=== PATIENT | female | born 1945 | race Caucasian/White ===

== ENCOUNTER → 2016-05-18 | Outpatient (CLI) | payer MEDICARE, OTHER | END | disposition home or self-care (01) | LOC: GMAB 14:43 | PROVIDERS: ATTEND Family Medicine | DX: R19.7 Diarrhea, unspecified (principal) ==

== ENCOUNTER → 2016-06-22 | Outpatient (CLI) | payer MEDICARE, OTHER | END | disposition home or self-care (01) | LOC: LAB.O 08:56 | PROVIDERS: ATTEND Orthopaedic Surgery | DX: Z01.818 Encounter for other preprocedural examination (principal); N39.0 Urinary tract infection, site not specified ==

== ENCOUNTER → 2016-07-11 | Outpatient (CLI) | payer MEDICARE, OTHER | END | disposition home or self-care (01) | LOC: GMAB 14:07 | PROVIDERS: ATTEND Family Medicine | DX: R53.82 Chronic fatigue, unspecified (principal) ==

== ENCOUNTER → 2016-07-25 | Outpatient (CLI) | payer MEDICARE, OTHER | END | disposition home or self-care (01) | LOC: GMAB 17:21 | PROVIDERS: ATTEND Family Medicine | DX: N39.0 Urinary tract infection, site not specified (principal) ==

== ENCOUNTER 2016-08-09 06:01 | Inpatient (IN) | payer MEDICARE, OTHER ==
--- NOTE | 2016-08-08 09:46 | HP ---
CHIEF COMPLAINT: Knee pain. HISTORY OF PRESENT ILLNESS: Lynsey is a 71-year-old female with a history of pain in the left knee. Her pain has begun limiting her activities. She has tried conservative measures, however, because of the failure of conservative measures, she has requested operative intervention. After discussing the risks , benefits and alternatives to operative intervention, the patient has given informed consent for total knee arthroplasty. PAST SURGICAL HISTORY: 1. Thyroidectomy. 2. Left knee arthroscopy. 3. Tubal ligation. MEDICATIONS: 1. Lisinopril. 2. Simvastatin. 3. Levothyroxine. 4. Metoprolol. 5. Fluoxetine. 6. Aspirin. ALLERGIES: NO KNOWN DRUG ALLERGIES. CODE STATUS: Full code. IMMUNIZATIONS: Up to date. SOCIAL HISTORY: The patient does not drink, smoke or use any illicit drugs. FAMILY HISTORY: None pertinent to today's complaint. REVIEW OF SYSTEMS: Negative except as indicated in the History of Present Illness. PHYSICAL EXAMINATION: VITAL SIGNS: Blood pressure 133/64. Pulse 79. Height 5'5". Weight 275. MENTAL STATUS: The patient is awake, alert, and is able to give a good history and participate in the physical. The patient is oriented to person, place and time. SKIN: Normal tone and turgor. HEENT: Normocephalic, atraumatic. Pupils equal, round and reactive. Mucosal membranes are moist. NECK: Normal range of motion. No thyromegaly, no lymphadenopathy. CHEST: Normal respiratory excursion. CARDIAC: Regular rate and rhythm. No murmurs, rubs or gallops. MUSCULOSKELETAL: The bilateral upper extremities show a right shoulder with difficulty in abduction and forward flexion. She has about 50 degrees on abduction. She is tender over the subacromial space. The contralateral side shows full range of motion without significant pain. There is no deformity in either upper extremity. The right knee shows good extension with flexion limitation at about 110 to 115 degrees. Extremities warm and well perfused. Sensation is intact. She has no varus/valgus or anterior/posterior laxity. IMAGING: X-rays show severe osteoarthritis with varus deformity. ASSESSMENT: 1. Osteoarthritis. PLAN: The plan at this point is for total knee arthroplasty. We have discussed the risks, benefits, and alternatives to that and the patient has given informed consent. #[id number] [facility]
[~2016-08-09 06:01] MED LIST: LACTATED RINGERS 1,000 ML ONE; SODIUM CHL 0.9% 100ML MINI-BAG 200 ML IVPB ONE; SODIUM CHLORIDE 0.9% 250ML 250 ML ONE; TRANEXAMIC ACID 1,000 MG/10 ML VIAL ONE; VANCOMYCIN HCL INJ 1,000 MG VIAL IVPB ONE; ceFAZolin SODIUM 1 GM VIAL ONE
[2016-08-09] MEDS ORDERED: BUPIVACAINE 0.25% INJ 30 ML VIAL INJ ONE (06:33)
[2016-08-09] MEDS ORDERED: ceFAZolin SODIUM 1 GM VIAL ONE ×4 (06:34→19:21)
[2016-08-09] MEDS ORDERED: MIDAZOLAM INJ 5 MG/5 ML VIAL ONE (06:43)
[2016-08-09] MEDS ORDERED: fentaNYL CITRATE INJ 50 MCG/ML AMP ONE (06:43)
[2016-08-09] MEDS ORDERED: CARBOXYMETHYLCELLULOSE 0.5% 0.4 ML UD ONE (06:43)
[2016-08-09] MEDS ORDERED: MORPHINE SULF *EPIDURAL* 1 MG/ML VIAL ONE (06:43)
[2016-08-09] MEDS ORDERED: ACETAMINOPHEN IV 1000MG 100 ML ONE (06:44)
[2016-08-09] MEDS ORDERED: VANCOMYCIN HCL INJ 1,000 MG VIAL IVPB ONE ×2 (08:44→15:33)
[2016-08-09] MEDS: VANCOMYCIN HCL INJ 1,000 MG VIAL IVPB ONE ×2 (08:50→09:30)
[2016-08-09] MEDS ORDERED: ELECTROLYTE-A 1,000 ML IVS ONE (08:58)
[2016-08-09] MEDS ORDERED: MORPHINE SULFATE INJ 10 MG/ML VIAL IM PRN (09:23)
[2016-08-09] MEDS ORDERED: SODIUM CHLORIDE 0.9% (FLUSH) 10 ML SYG IV PRN (09:23)
[2016-08-09] MEDS ORDERED: PROMETHAZINE HCL INJ 25 MG in SODIUM CHLORIDE 0.9% 50ML 50 ML IVPB PRN (09:23)
[2016-08-09] MEDS ORDERED: ALUMINUM & MAGNESIUM HYDROXIDE 30 ML UD PO PRN (09:23)
[2016-08-09] MEDS ORDERED: BISACODYL SUPPOSITORY 10 MG PR PRN (09:23)
[2016-08-09] MEDS ORDERED: ACETAMINOPHEN 500 MG TAB PO PRN (09:23)
[2016-08-09] MEDS ORDERED: ONDANSETRON INJ 4 MG/2 ML VIAL IV PRN (09:23)
[2016-08-09] MEDS ORDERED: MAGNESIUM HYDROXIDE 30 ML UD PO PRN (09:23)
[2016-08-09] MEDS ORDERED: TEMAZEPAM 15 MG CAP PO PRN (09:23)
[2016-08-09] MEDS ORDERED: PROMETHAZINE HCL INJ 12.5 MG in SODIUM CHLORIDE 0.9% 50ML 50 ML IVPB PRN (09:23)
[2016-08-09] MEDS ORDERED: BENZOCAINE-MENTH LOZ (CEPACOL) 1 EA LOZ MT PRN (09:23)
[2016-08-09] MEDS ORDERED: TRANEXAMIC ACID INJ 1,000 MG in SODIUM CHLORIDE 0.9% 100ML 100 ML IVPB ONE (09:23)
[2016-08-09] MEDS ORDERED: ACETAMINOPHEN 325 MG TAB PO PRN (09:23)
[2016-08-09] MEDS ORDERED: ZOLPIDEM TARTRATE 5 MG TAB PO PRN (09:23)
[2016-08-09] MEDS ORDERED: MORPHINE SULFATE INJ 10 MG/ML VIAL IV PRN (09:23)
[2016-08-09] MEDS ORDERED: NALOXONE HCL INJ 0.4 MG/ML VIAL IV PRN (09:23)
[2016-08-09] MEDS ORDERED: MORPHINE PCA 1 MG/ML 100ML 1 BAG in PREMIX BAG 1 BAG IVPB SCH (09:30)
[2016-08-09] MEDS ORDERED: MORPHINE PCA 1 MG/ML 100 ML BAG IVPB ONE (09:42)
[2016-08-09] MEDS ORDERED: SODIUM CHLORIDE 0.45% 1000ML 1,000 ML IVS PRN (11:45)
[2016-08-09] MEDS ORDERED: LIDOCAINE 1% 10 ML VIAL INJ ONE (12:00)
[2016-08-09] MEDS ORDERED: ePHEDrine SULF 50 MG/ML IV ONE (12:00)
[2016-08-09] MEDS ORDERED: raNITIdine HCL INJ 25 MG/ML VIAL IV ONE (12:00)
[2016-08-09] MEDS ORDERED: ONDANSETRON ODT 8 MG TAB PO ONE (12:00)
[2016-08-09] MEDS ORDERED: DEXAMETHASONE INJ 10 MG/ML VIAL IV ONE (12:00)
[2016-08-09] MEDS ORDERED: PROPOFOL 200 MG/20 ML VIAL IV ONE (12:00)
[2016-08-09] MEDS: IV SET AND CAP CHANGE INJ INJ SCH (13:18)
[2016-08-09] MEDS: DEX 5% W/NACL 0.45% 1000ML 1,000 ML IVS PRN (13:33)
--- NOTE | 2016-08-09 14:43 | RAD ---
EXAM DESCRIPTION: Knee,Left 2 or More Views CLINICAL HISTORY: 71 years,Female,TKA COMPARISON: None FINDINGS: The left knee demonstrates total knee arthroplasty which appears be recent without evidence of fractures. The joint spaces are unremarkable. The soft tissues overlying soft tissue swelling and significant emphysema from recent surgery. No joint effusion. IMPRESSION: Recent left total knee arthroplasty appears unremarkable. Electronically signed by: Red Ozuna MD 08/09/2016 2:43 PM CDT
[2016-08-09] MEDS ORDERED: SODIUM CHLORIDE 0.9% 100ML 100 ML IVPB ONE ×2 (15:32→19:21)
[2016-08-09] MEDS ORDERED: SODIUM CHLORIDE 0.9% 250ML 250 ML ONE (15:33)
[2016-08-09] MEDS: ceFAZolin SODIUM 2 GM in SODIUM CHLORIDE 0.9% 100ML 100 ML IVPB SCH (15:55)
[2016-08-09] MEDS ORDERED: ceFAZolin SODIUM 1 GM in SODIUM CHL 0.9% 50ML MIN-BAG+ 50 ML IVPB SCH (16:00)
[2016-08-09] MEDS: VANCOMYCIN HCL INJ 1,000 MG in SODIUM CHLORIDE 0.9% 250ML 250 ML IVPB SCH (17:21)
--- NOTE | 2016-08-09 19:02 | PCM.CORE ---
Physician DVT/VTE - Prophylaxis Currently: Patient already on anticoagulation therapy - Nurse DVT Assessment & Total Each Risk Factor Represents 5 Points: Elective Arthtroplasty Each Risk Factor Represents 2 Points: Age 60-74 Each Risk Factor is 1 Point: Obesity (BMI >25) DVT Assessment Score: 8 - 5 or more Very High Risk Treatments: Early Ambulation *, Sequential Compression Device Pharmacological: Enoxaparin 30mg SQ BID
[2016-08-09] MEDS ORDERED: DOCUSATE CALCIUM 240 MG CAP ONE (19:20)
[2016-08-09] MEDS ORDERED: ENOXAPARIN SODIUM 30 MG/0.3 ML SYG SUBCU ONE (19:21)
[2016-08-09] MEDS ORDERED: SIMVASTATIN 20 MG TAB ONE (19:21)
--- NOTE | 2016-08-09 20:05 | CONS ---
DATE OF CONSULTATION: 08/09/16 SUPERVISING PHYSICIAN: Fan Rodriguez M.D. REFERRING PHYSICIAN: Orthopedic services HISTORY OF PRESENT ILLNESS: Ms. Lord is a 71 year-old female patient that has a significant history of bilateral knee pain having recently had her right knee replaced on 10/28/15. She has been having pain that has been limiting her activities significantly and she has failed multiple conservative measures, and has requested Dr. Coleman perform operative intervention to assist with her symptom control. The patient was seen in the immediate postoperative state after a total left knee arthroplasty. She is in stable condition. PAST MEDICAL HISTORY: 1. Hyperlipidemia. 2. Hypertension. 3. Hypothyroidism. PAST SURGICAL HISTORY: 1. Right total knee arthroplasty 10/28/15. 2. Thyroidectomy. 3. Tubal ligation. 4. Previous left knee arthroscopic procedure. HOME MEDICATIONS: 1. Simvastatin 40 mg at bedtime. 2. Phenergan 12.5 mg at bedtime. 3. Metoprolol succinate ER 25 mg daily. 4. Hydrochlorothiazide 12.5 mg 1 tablet daily. 5. Lisinopril 10 mg at bedtime. 6. Prozac 40 mg daily. 7. Aspirin 325 mg daily. 8. ProAir handheld inhaler 2 puffs inhaled every 6 hours p.r.n. 9. Meloxicam 10 mg daily. ALLERGIES: NO KNOWN DRUG ALLERGIES. FAMILY HISTORY: Father is from colon cancer and complications of diabetes mellitus. Mother has type 2 diabetes mellitus. SOCIAL HISTORY: The patient lives in [place]. She is but denies any history of smoking ever and no illicit drug use, but she drinks on a rare occasion. PHYSICAL EXAMINATION: VITAL SIGNS: Temperature 98.1, pulse 59, blood pressure 131/74, respirations 18 , satting 95% on nasal cannula at rest. Weight is 124.7 kg. GENERAL: The patient is seen in the immediate postoperative state. She is resting in bed on admission to the Medical/Surgical floor. She appears to be comfortable and in no acute distress. She did have Astramorph and has a ALTERATION SPECIALIST pain regimen in place. Her left knee is in a bandage and with Iceman in place. HEENT: Tympanic membranes are clear bilaterally. Oropharynx is pink and moist without any lesions. NECK: Supple with full range of motion, non-tender. No jugular venous distention is noted. CHEST: Clear to auscultation bilaterally without any rhonchi, wheezing or rales. HEART: Regular rate and rhythm without appreciable murmurs, gallops, or rubs. ABDOMEN: Obese but soft, non-tender with positive bowel sounds. EXTREMITIES: No clubbing, cyanosis or edema noted. Surgical bandage and Iceman are in place over the left knee with distal pulses being strong and capillary refill being brisk. NEUROLOGIC: She is alert and oriented times three. Cranial nerves II-XII are grossly intact. There is no notable localizing or lateralizing neurological deficits. LABORATORY: No current laboratory for review. RADIOLOGY: No radiology for review. ASSESSMENT: 1. Postoperative day zero for left total knee arthroplasty having failed to respond to conservative treatment for ongoing chronic pain requiring surgical intervention for symptom control. 2. History of hypertension. 3. History of hypothyroidism on supplementation. 4. Morbid obesity. PLAN: Will continue to follow the patient closely as long as she progresses through her recovery phase and physical therapy efforts. Will monitor blood pressure and treat accordingly. Will anticipate discharge at the discretion of the patient's clinical progression and Physical Therapy. Previously she required Swing Bed admission. Will continue to monitor and should she show good clinical progression, anticipate she could go home at least in 3 to 4 days , possibly needing Swing Bed. Until then, will continue to monitor closely and treat appropriately. #[id number] [facility]
[2016-08-09] MEDS: DOCUSATE CALCIUM 240 MG CAP PO SCH (20:56)
[2016-08-09] MEDS: LISINOPRIL 10 MG TAB PO SCH (20:57)
[2016-08-09] MEDS ORDERED: NON-FORMULARY MEDICATION 1 EA MIS (Simvastatin [Simvastatin] 40 MG) PO SCH (21:00)
[2016-08-09] MEDS: ENOXAPARIN SODIUM 30 MG/0.3 ML SYG SUBCU SCH (22:30)
[2016-08-10] MEDS: ceFAZolin SODIUM 2 GM in SODIUM CHLORIDE 0.9% 100ML 100 ML IVPB SCH ×3 (00:27→08:36)
[2016-08-10] MEDS ORDERED: VANCOMYCIN HCL INJ 1,000 MG VIAL IVPB ONE (04:55)
[2016-08-10] MEDS ORDERED: SODIUM CHLORIDE 0.9% 250ML 250 ML ONE (04:55)
[2016-08-10] MEDS ORDERED: FLUoxetine HCL 20 MG CAP ONE (04:58)
[2016-08-10] MEDS: VANCOMYCIN HCL INJ 1,000 MG in SODIUM CHLORIDE 0.9% 250ML 250 ML IVPB SCH ×2 (05:17→05:22)
[2016-08-10] MEDS: METOPROLOL SUCCINATE XL 25 MG TAB PO SCH (06:30)
[2016-08-10] MEDS ORDERED: FLUOXETINE HCL 40 MG PO SCH (07:00)
[2016-08-10] MEDS ORDERED: SODIUM CHLORIDE 0.9% 100ML 100 ML IVPB ONE (07:33)
[2016-08-10] MEDS ORDERED: ceFAZolin SODIUM 1 GM VIAL ONE (07:34)
[2016-08-10] MEDS: ASPIRIN TABLET 325 MG TAB PO SCH (08:38)
[2016-08-10] MEDS: MAGNESIUM OXIDE 400 MG TAB PO SCH (08:38)
[2016-08-10] MEDS: MELOXICAM 10 MG PO SCH (08:39)
[2016-08-10] MEDS: ENOXAPARIN SODIUM 30 MG/0.3 ML SYG SUBCU SCH ×2 (09:43→21:20)
--- NOTE | 2016-08-10 10:05 | PN ---
DATE: 08/09/16 POSTOPERATIVE CHECK SUBJECTIVE: Ms. Lord is doing very well. She is on her CPM and near 120 degrees. OBJECTIVE: Afebrile. Vital signs stable. Dressing is clean, dry and intact. ASSESSMENT: Status post total knee arthroplasty. PLAN: The plan at this point is for her to begin weight-bearing as tolerated on postoperative day 1. #[id number] [facility]
--- NOTE | 2016-08-10 10:06 | PN ---
DATE: 08/10/16 SUBJECTIVE: Ms. Lord is doing well and pain is well controlled and therefore. OBJECTIVE: Afebrile. Vital signs stable. Dressing is clean, dry and intact. ASSESSMENT: Status post total knee arthroplasty. PLAN: The plan at this point is for her to continue with CPM and advance as tolerated. She will begin weight-bearing today with physical therapy. [facility][id number] [facility]
--- NOTE | 2016-08-10 10:19 | OP ---
DATE OF PROCEDURE: 08/09/16 PREOPERATIVE DIAGNOSIS: 1. Osteoarthritis of the knee. POSTOPERATIVE DIAGNOSIS: 1. Osteoarthritis of the knee. PROCEDURE: 1. Total knee arthroplasty. SURGEON: Luke Coleman MD. RN ALLERGY: Segun Jim CST, SA-C. ANESTHESIA: General. COMPLICATIONS: None. FINDINGS: Severe arthritis of the knee. INDICATION: Ms. Lord has a long history of knee pain that has been associated with arthritis. She has had total knee arthroplasty on the contralateral side and requested operative intervention on the left side secondary to failure of conservative measures. After discussing the risks, benefits and alternatives to that, the patient has given informed consent for total knee arthroplasty. PROCEDURE: The patient was brought to the Operating Room and placed in supine position. General anesthesia was induced and the patient's leg was sterilely prepped and draped. Following prepping and draping, the distal femur was exposed and using an intramedullary guide, the distal femoral cut was made. The appropriate sized cutting block was measured, pinned into place, and the anterior, posterior, and chamfer cuts were made. The ACL was transected and the tibia was subluxed. Both the medial and lateral menisci were removed. An intramedullary guide was used to make the proximal tibial cut. The appropriate sized base plate was placed and a trial polyethylene was placed. The trial femur was placed, the knee was reduced, and the knee was taken through a range of motion. The knee was stable in anterior, posterior, varus and valgus stress. The patella tracked anatomically without evidence of subluxation or dislocation. After trialing, the trial components were removed and the bony surfaces were thoroughly irrigated with saline. Following irrigation, the surfaces were dried and the final components were cemented into place. The excess cement was removed and the remaining cement was allowed to cure. The knee was again taken through a range of motion to confirm stability. The wound was then irrigated with saline and closure was performed using PDS to approximate the arthrotomy followed by closure of the subcutaneous tissues with a combination of running and interrupted Monocryl sutures. Sterile dressing was placed. The patient was awoken from anesthesia and taken to Recovery. POSTOPERATIVE INSTRUCTIONS: The patient will be weight-bearing as tolerated on postoperative day 1. COMPONENTS: SHERPANDIPITY Triathlon Knee; size 5 femur, size 5 tibia, 11mm insert #[id number] MTD
[2016-08-10] MEDS: HYDROcodone 5MG/APAP 325MG 1 EA TAB PO PRN (15:36)
--- NOTE | 2016-08-10 20:16 | PN ---
DATE: 08/10/16 SUPERVISING PHYSICIAN: Fan Rodriguez M.D. SUBJECTIVE: The patient is lying in her hospital bed. She has been walking in the halls and has no complaints at this time. In fact, she feels really well today, although she is tired from the physical therapy. OBJECTIVE: VITAL SIGNS: Temperature 99, pulse rate 62, blood pressure 130/71, respiratory rate 20, O2 sat 92% on room air. RESPIRATORY: Clear to auscultation bilaterally. CARDIAC: Regular rate and rhythm. ABDOMEN: Soft, nondistended, non-tender. Bowel sounds are positive. EXTREMITIES: She has an Iceman to her left knee. +1 pedal edema bilaterally with bilateral palpable pedal pulses at +2. No cyanosis or clubbing. The bandage to her left knee is dry and intact. NEUROLOGIC: She is awake, alert and oriented times three. LABORATORY AND RADIOLOGY: There are no current labs and films to be reviewed. ASSESSMENT: 1. Postoperative day 1 for left total knee arthroplasty having failed to respond to conservative treatment for ongoing chronic pain requiring surgical intervention by Dr. Luke Coleman, orthopedic surgeon. 2. History of hypertension. 3. History of hypothyroidism. 4. Morbid obesity. PLAN: We will continue present supportive care. I have encouraged good pulmonary toilet, including her incentive spirometry. Orthopedic issues will be per Dr. Coleman and her strengthening and conditioning per Physical Therapy. Hopefully she can go home by Monday or Monday with outpatient physical therapy. Until then, we will continue to monitor closely and followup as needed. Dr. Rodriguez is the collaborating physician available for consultation. #[id number] [facility]
[2016-08-10] MEDS: SIMVASTATIN 20 MG TAB PO SCH (21:20)
[2016-08-10] MEDS: DOCUSATE CALCIUM 240 MG CAP PO SCH (21:20)
[2016-08-10] MEDS: LISINOPRIL 10 MG TAB PO SCH (21:20)
[2016-08-10] MEDS: DEX 5% W/NACL 0.45% 1000ML 1,000 ML IVS PRN (21:22)
[2016-08-11] MEDS: HYDROcodone 5MG/APAP 325MG 1 EA TAB PO PRN ×3 (03:13→16:52)
[2016-08-11] MEDS: FLUoxetine HCL 20 MG CAP PO SCH (06:12)
[2016-08-11] MEDS: METOPROLOL SUCCINATE XL 25 MG TAB PO SCH (06:15)
--- NOTE | 2016-08-11 09:04 | PN ---
DATE: 08/11/16 SUBJECTIVE: Ms. Pak is doing very well and her pain is well controlled. OBJECTIVE: Afebrile. Vital signs stable. Wound is clean. There are no signs or symptoms of infection. ASSESSMENT: Status post total knee arthroplasty. PLAN: The plan is to continue with weight-bearing as tolerated. We will discharge her when she has met all goals. [facility][id number] [facility]
[2016-08-11] MEDS: MAGNESIUM OXIDE 400 MG TAB PO SCH (09:40)
[2016-08-11] MEDS: ASPIRIN TABLET 325 MG TAB PO SCH (09:40)
[2016-08-11] MEDS: ENOXAPARIN SODIUM 30 MG/0.3 ML SYG SUBCU SCH ×2 (09:40→22:36)
[2016-08-11] MEDS: SODIUM CHLORIDE 0.9% (FLUSH) 10 ML SYG IV SCH ×2 (09:40→21:13)
[2016-08-11] MEDS: MELOXICAM 10 MG PO SCH (09:59)
--- NOTE | 2016-08-11 13:41 | PN ---
SUPERVISING PHYSICIAN: Erum Rodriguez MD DATE: 08/11/16 SUBJECTIVE: The patient is sleeping in her hospital bed. She awakens easily. She has no complaints except that she did not sleep quite as well as she would have liked last night, but otherwise she feels like she is progressing very well. OBJECTIVE: VITAL SIGNS: Afebrile. Heart rate 65. Blood pressure 137/61. Respiratory rate 18. O2 saturation 93% on 2 liters nasal cannula. LUNGS: Clear to auscultation bilaterally. CARDIAC: Regular rate and rhythm. ABDOMEN: Soft, nontender, nondistended. Bowel sounds are positive. EXTREMITIES: She has an Iceman to her left knee. Dressing to her knee is dry and intact. There is no cyanosis, clubbing or edema to the lower extremities. NEUROLOGIC: Awake, alert and oriented times three. LABORATORY: There are no current laboratory or radiology films to be reviewed. ASSESSMENT: 1. Postoperative day 2 for left total knee arthroplasty, having failed to respond to conservative treatment for ongoing chronic pain requiring surgical intervention by Dr. Luke Coleman, orthopedic surgeon. 2. History of hypertension. 3. History of hypothyroidism. 4. Morbid obesity. PLAN: We will continue supportive care. We will defer issues of orthopedic nature to Dr. Coleman. She will continue her strengthening and condition per physical therapy. When she has met her goals, we can discharge her home. We anticipate discharge on Monday with outpatient physical therapy. Until then, we will continue present supportive care and follow as needed. [facility][id number] [facility]
[2016-08-11] MEDS: CYCLOBENZAPRINE HCL 10 MG TAB PO PRN (18:16)
[2016-08-11] MEDS: LISINOPRIL 10 MG TAB PO SCH (21:13)
[2016-08-11] MEDS: SIMVASTATIN 20 MG TAB PO SCH (21:13)
[2016-08-11] MEDS: DOCUSATE CALCIUM 240 MG CAP PO SCH (21:13)
[2016-08-12] MEDS: HYDROcodone 5MG/APAP 325MG 1 EA TAB PO PRN ×3 (00:17→14:05)
[2016-08-12] MEDS: FLUoxetine HCL 20 MG CAP PO SCH (05:58)
[2016-08-12] MEDS: METOPROLOL SUCCINATE XL 25 MG TAB PO SCH (05:58)
[2016-08-12] MEDS: ASPIRIN TABLET 325 MG TAB PO SCH (09:31)
[2016-08-12] MEDS: SODIUM CHLORIDE 0.9% (FLUSH) 10 ML SYG IV SCH ×2 (09:32→21:29)
[2016-08-12] MEDS: MELOXICAM 10 MG PO SCH (09:32)
[2016-08-12] MEDS: MAGNESIUM OXIDE 400 MG TAB PO SCH (09:32)
[2016-08-12] MEDS: IV SET AND CAP CHANGE INJ INJ SCH (09:33)
[2016-08-12] MEDS: ENOXAPARIN SODIUM 30 MG/0.3 ML SYG SUBCU SCH ×2 (10:44→21:26)
[2016-08-12] MEDS: CYCLOBENZAPRINE HCL 10 MG TAB PO PRN (10:51)
--- NOTE | 2016-08-12 11:25 | PN ---
DATE: 08/12/16 SUBJECTIVE: Lynsey is doing really well. She is ambulating with her walker. OBJECTIVE: Wound is clean. There are no signs or symptoms of infection. ASSESSMENT: Status post total knee arthroplasty. PLAN: She is doing well enough that I think she would be a candidate for discharge tomorrow. She will be prescribed outpatient physical therapy. [facility][id number] [facility]
[2016-08-12] MEDS ORDERED: MAGNESIUM HYDROXIDE 30 ML UD PO ONE ×2 (11:40→21:00)
--- NOTE | 2016-08-12 12:00 | PN ---
SUPERVISING PHYSICIAN: Erum Rodriguez MD DATE: 08/12/16 SUBJECTIVE: The patient is lying in her hospital bed. She has just walked in the hallways. She has no complaints of shortness of breath, chest pain, nausea , vomiting, or any unexpected pain in her knee. Her only complaint is that she has not had a bowel movement since surgery and we discussed that she has some issues after taking opioids, so will give her some Milk of Magnesia and she agreed to that. OBJECTIVE: VITAL SIGNS: Afebrile. Heart rate 65. Blood pressure 145/70. Respiratory rate 20. O2 saturation 93% on room air. LUNGS: Clear to auscultation bilaterally. CARDIAC: Regular rate and rhythm. ABDOMEN: Soft, nontender, nondistended. Bowel sounds are positive. EXTREMITIES: She has a dressing to her left knee that is dry and intact. Bilateral pedal pulses are palpable at +2. No cyanosis, clubbing or edema to her lower extremities. NEUROLOGIC: Awake, alert and oriented times three. LABORATORY: There are no labs and films to review at this time. ASSESSMENT: 1. Postoperative day 3 for left total knee arthroplasty, having failed to respond to conservative treatment for ongoing chronic pain requiring surgical intervention by Dr. Luke Coleman, orthopedic surgeon. 2. History of hypertension. 3. History of hypothyroidism. 4. Morbid obesity. PLAN: We will continue present supportive care. Dr. Coleman and the patient have discussed that she will be discharged tomorrow. She will have outpatient physical therapy. At this time, she will continue with strengthening and condition with our physical therapy. I have ordered her some Milk of Magnesia and we will monitor the results of that. We will plan for discharge tomorrow as long as everything progresses as expected. Otherwise, we will continue to monitor the patient closely and followup as needed. #[id number] [facility]
[2016-08-12] MEDS ORDERED: BISACODYL SUPPOSITORY 10 MG PR ONE (21:00)
[2016-08-12] MEDS: DOCUSATE CALCIUM 240 MG CAP PO SCH (21:26)
[2016-08-12] MEDS: LISINOPRIL 10 MG TAB PO SCH (21:26)
[2016-08-12] MEDS: SIMVASTATIN 20 MG TAB PO SCH (21:28)
[2016-08-13] MEDS: HYDROcodone 5MG/APAP 325MG 1 EA TAB PO PRN (00:26)
[2016-08-13] MEDS: FLUoxetine HCL 20 MG CAP PO SCH (09:03)
[2016-08-13] MEDS: METOPROLOL SUCCINATE XL 25 MG TAB PO SCH (09:04)
[2016-08-13] MEDS: ASPIRIN TABLET 325 MG TAB PO SCH (09:04)
[2016-08-13] MEDS: SODIUM CHLORIDE 0.9% (FLUSH) 10 ML SYG IV SCH (09:05)
[2016-08-13] MEDS: MAGNESIUM OXIDE 400 MG TAB PO SCH (09:08)
[2016-08-13] MEDS: MELOXICAM 10 MG PO SCH (09:25)
[2016-08-13] MEDS: ENOXAPARIN SODIUM 30 MG/0.3 ML SYG SUBCU SCH (10:22)
[2016-08-13] MEDS: CYCLOBENZAPRINE HCL 10 MG TAB PO PRN (10:23)
[2016-08-13 11:39] VITALS: BP 136/74; TEMP 98.5; O2SAT 96
--- NOTE | 2016-08-13 11:54 | DS ---
DISCHARGE DIAGNOSIS: 1. Postoperative day number 4 left total knee arthroplasty performed by Dr. Coleman, orthopedic surgery, after having failed outpatient conservative therapy and requiring surgical intervention for symptomatic relief. 2. History of hypertension. 3. History of hypothyroidism on supplementation. 4. Obesity. HISTORY OF PRESENT ILLNESS: This 71 year-old white female was admitted to the hospital for elective surgery to be performed by Dr. Coleman, orthopedist, because of worsening pain in her left knee. She had previously and more recently had a total right knee replacement surgery performed on 10/28/15. It was helpful in allowing her to at this time undergo the additional surgery of having her left total knee replaced to assist with worsening symptomatology unresponsive to outpatient therapy. She tolerated the procedure quite well and was placed on physical therapy rehabilitation, and was slowly progressed in her abilities to function until she was able to safely be able to return home. LABORATORY STUDIES: Hemoglobin on the morning after surgery was 11.2. Other preoperative laboratory results are in the chart. Please refer to them for reference. X-RAYS: Postoperative x-ray of the left knee showed good placement of the left total knee arthroplastic device. HOSPITAL COURSE: The patient's condition slowly improved requiring less and less analgesics, and was soon able to get out of the bed and go to the bathroom , and to the chair without significant assistance. She will have her at home to assist with her ongoing care as well. She reached the point where it was safe for her to continue with her therapy at home and was discharged home to continue with outpatient therapy. PLAN: The patient was discharged home to have followup with Dr. Rodríguez in [address] Coleman at the appointment set up on 08/26/16 at 8:45 AM. Home medicines will be continued to which are added a prescription by Dr. Coleman for [place] 5/325 every 6 hours p.r.n. pain #50 as well as Xarelto 10 mg a day beginning tomorrow morning #8 tablets given. The patient is encouraged to breathe deeply and to actively contract and relax muscles of the lower extremities to assist with DVT prophylaxis. She is to actively participate in physical [facility] begin on Monday at scheduled time to be given to her by Physical Therapy. She is to return if not improving. #[id number] [facility]
== END 2016-08-13 13:40 | disposition home or self-care (01) | DRG 470 ==
LOC: AMB 06:01 → MS 10:26
PROVIDERS: ADMIT Orthopaedic Surgery; ATTEND Emergency Medicine
PROC: 0SRD0J9 Replacement of Left Knee Joint with Synthetic Substitute, Cemented, Open Approach (ICD-10-PCS; principal; 2016-08-09 07:00)
DX: M17.12 Unilateral primary osteoarthritis, left knee (principal); Z68.42 Body mass index [BMI] 45.0-49.9, adult; I10 Essential (primary) hypertension; E03.9 Hypothyroidism, unspecified; E78.5 Hyperlipidemia, unspecified; E66.01 Morbid (severe) obesity due to excess calories; F32.9 Major depressive disorder, single episode, unspecified; Z96.651 Presence of right artificial knee joint; Z79.82 Long term (current) use of aspirin; Z79.899 Other long term (current) drug therapy

== ENCOUNTER → 2016-12-22 | Outpatient (CLI) | payer MEDICARE, OTHER | END | disposition home or self-care (01) | LOC: GMAB 10:05 | PROVIDERS: ATTEND Family Medicine | DX: E03.9 Hypothyroidism, unspecified (principal) ==

== ENCOUNTER → 2017-02-02 | Outpatient (CLI) | payer MEDICARE, OTHER | LOC: GMAB 16:46 | PROVIDERS: ATTEND Family Medicine | DX: E53.8 Deficiency of other specified B group vitamins (principal); D50.9 Iron deficiency anemia, unspecified; D64.9 Anemia, unspecified ==

== ENCOUNTER → 2017-08-01 | Outpatient (CLI) | payer MEDICARE, OTHER ==
--- NOTE | 2017-08-03 11:32 | MAM ---
EXAM DESCRIPTION: 3D Screening BILATERAL : Digital Mammography. CLINICAL HISTORY: 72 years Female SCREENING . No complaints. No family history breast cancer. Postmenopausal. Taking HRT more than 5 years ago. COMPARISON: 2-D digital screening bilateral study 09/03/2015.. No prior reports available. TECHNIQUE: Bilateral CC and MLO projection full-field images, 3-D tomosynthesis digital mammographic technique. Also bilateral synthesized CC/ MLO full-field images. CAD not utilized. FINDINGS: The breast parenchymal density pattern is: Almost entirely fatty. No skin thickening or nipple retraction bilateral axillary lymph nodes. Bilateral solitary microcalcifications. No focal, stellate mass or density, focal asymmetry , and no suspicious microcalcifications bilaterally. Stable mammograms compared to prior study, taking into account differences in mammographic technique IMPRESSION: BI-RADS CATEGORY: 2 - BENIGN FINDINGS. FOLLOW UP: Routine digital bilateral screening, one year interval from August 2017. Written communication explaining the IMPRESSION and follow-up, will be mailed to the patient and referring health care provider. According to the [employer], yearly mammograms are recommended starting at age 40 and continuing as long as a woman is in good health. Any breast change noted on a breast self-exam should be reported promptly to the patient's healthcare provider. Breast MRI is recommended for women with an approximately 20-25% or greater lifetime risk of breast cancer, including women with a strong family history of breast or ovarian cancer and women who have been treated for Hodgkin's disease. A negative mammographic report should not delay tissue diagnosis in patients with significant clinical history or physical findings. Extremely dense breast tissue limits the sensitivity of digital mammography. Electronically signed by: Segun Caceres MD 08/03/2017 11:30 AM CDT
== END ==
LOC: MAMMO 16:40
PROVIDERS: ATTEND Family Medicine
DX: Z12.31 Encounter for screening mammogram for malignant neoplasm of breast (principal)

== ENCOUNTER → 2017-11-29 | Outpatient (CLI) | payer MEDICARE, OTHER | LOC: GMAE 10:34 | PROVIDERS: ATTEND Family Medicine | DX: E53.8 Deficiency of other specified B group vitamins (principal); E55.9 Vitamin D deficiency, unspecified ==

== ENCOUNTER → 2018-01-24 | Outpatient (CLI) | payer MEDICARE, OTHER | LOC: GMAE 10:54 | PROVIDERS: ATTEND Family Medicine | DX: E03.9 Hypothyroidism, unspecified (principal); I10 Essential (primary) hypertension ==

== ENCOUNTER 2018-02-07 06:07 | Day surgery (SDC) | payer MEDICARE, OTHER ==
[~2018-02-07 06:07] MED LIST changes: -SODIUM CHL 0.9% 100ML MINI-BAG 200 ML IVPB ONE; -SODIUM CHLORIDE 0.9% 250ML 250 ML ONE; -TRANEXAMIC ACID 1,000 MG/10 ML VIAL ONE; -VANCOMYCIN HCL INJ 1,000 MG VIAL IVPB ONE; -ceFAZolin SODIUM 1 GM VIAL ONE
[2018-02-07] MEDS ORDERED: MIDAZOLAM INJ 2 MG/2 ML VIAL ONE (07:46)
[2018-02-07] MEDS ORDERED: PROPOFOL 200 MG/20 ML VIAL IV ONE (10:00)
--- NOTE | 2018-02-07 10:11 | OP ---
DATE OF PROCEDURE: 02/07/18 PREPROCEDURE DIAGNOSIS: 1. Chronic diarrhea. POSTPROCEDURE DIAGNOSIS: 1. Colonic polyp. 2. Diverticulosis. PROCEDURE: 1. Colonoscopy with snare polypectomy. SURGEON: Ned Syed MD. SEDATION: Monitored anesthesia care. ESTIMATED BLOOD LOSS: Less than 5 mL. PROCEDURE: Informed consent was obtained prior to sedation. The preprocedure cardiopulmonary assessment was satisfactory. The patient was brought to the Endoscopy Suite and placed in the left lateral decubitus position. The patient was then sedated by the anesthesia team. Digital rectal and perianal exams were normal. The tip of the Olympus colonoscope was inserted into the rectum and advanced under direct visualization to the cecum as identified by the presence of the appendiceal orifice and ileocecal valve. Preparation of the colon was good. Upon reaching the cecum, the endoscope was slowly withdrawn. In the hepatic flexure, there was an 8 mm sessile polyp. This was resected with cold snare polypectomy and retrieved for pathology. In the transverse and descending colon, there were a few scattered diverticula. Retroflexed view of the anal verge showed no abnormalities. The endoscope was then withdrawn from the patient and the procedure terminated. RECOMMENDATION: 1. Discharge the patient home with escort. 2. Resume regular diet. 3. Continue present medications. 4. Followup pathology. 5. Surveillance colonoscopy in 5 years' time. 6. Followup in my office as previously scheduled. #[id number] [facility]
[2018-02-07 10:12] VITALS: BP 126/69; TEMP 96.3; O2SAT 96
== END 2018-02-07 10:55 | disposition home or self-care (01) ==
LOC: AMB 06:07
PROVIDERS: ATTEND Internal Medicine Gastroenterology
DX: K52.9 Noninfective gastroenteritis and colitis, unspecified (principal); D12.3 Benign neoplasm of transverse colon; K57.30 Diverticulosis of large intestine without perforation or abscess without bleeding; I10 Essential (primary) hypertension; E66.9 Obesity, unspecified; Z68.41 Body mass index [BMI] 40.0-44.9, adult; Z79.82 Long term (current) use of aspirin; Z79.899 Other long term (current) drug therapy
CPT/HCPCS: 00811; 45385; 88305; J2250; J3490; J7120

== ENCOUNTER → 2018-11-26 | Outpatient (CLI) | payer MEDICARE, OTHER | LOC: GMATM 21:19 | PROVIDERS: ATTEND Nurse Practitioner Family | DX: N39.0 Urinary tract infection, site not specified (principal) ==

== ENCOUNTER → 2019-01-08 | Outpatient (CLI) | payer MEDICARE, OTHER | LOC: GMAE 10:43 | PROVIDERS: ATTEND Family Medicine | DX: R53.82 Chronic fatigue, unspecified (principal); R60.9 Edema, unspecified; E78.2 Mixed hyperlipidemia; R06.02 Shortness of breath ==

== ENCOUNTER → 2020-01-21 | Outpatient (CLI) | payer MEDICARE, OTHER ==
--- NOTE | 2020-01-27 08:41 | MAM ---
EXAM DESCRIPTION: 3D Screening BILATERAL : Digital Mammography. CLINICAL HISTORY: 74 years Female SCREENING . No complaints. No family history of breast cancer. Menarche age 12. Childbirth age 38. Menopause age unknown. HRT 5 or more years ago.. Lifetime risk of developing breast cancer (Tyrer-Cuzick model)(%): 5.6. COMPARISON: Bilateral screening digital breast tomosynthesis August 2017 and bilateral screening digital 2-D examination September 2015.. TECHNIQUE: Bilateral CC and MLO projection full-field images, digital tomosynthesis mammographic technique. Bilateral digital 2-D full-field MLO images. CAD available for 2-D images. FINDINGS: The breast parenchymal density pattern is: Scattered areas of fibroglandular density. No skin thickening or nipple retraction. Axillary nodes. Solitary microcalcifications and coarse calcifications. No new focal, stellate mass or density, focal asymmetry , and no suspicious microcalcifications bilaterally. Stable mammograms compared to prior study. Taking into account, differences in mammographic technique. IMPRESSION: Benign exam. BIRAD CATEGORY: 2 BENIGN FINDINGS. RECOMMENDATIONS: FOLLOW UP: Routine digital bilateral mammographic screening, one year interval from January 2020. Written communication explaining the IMPRESSION and follow-up, will be mailed to the patient and referring health care provider. According to the [employer], yearly mammograms are recommended starting at age 40 and continuing as long as a woman is in good health. Any breast change noted on a breast self-exam should be reported promptly to the patient's healthcare provider. Breast MRI is recommended for women with an approximately 20-25% or greater lifetime risk of breast cancer, including women with a strong family history of breast or ovarian cancer and women who have been treated for Hodgkin's disease. A negative mammographic report should not delay tissue diagnosis in patients with significant clinical history or physical findings. Extremely dense breast tissue limits the sensitivity of digital mammography. Electronically signed by: Segun Caceres MD 01/27/2020 8:40 AM CDT
== END ==
LOC: MAMMO 16:00
PROVIDERS: ATTEND Family Medicine
DX: Z12.31 Encounter for screening mammogram for malignant neoplasm of breast (principal)

== ENCOUNTER → 2020-02-12 | Outpatient (CLI) | payer MEDICARE, OTHER | LOC: GMAE 10:44 | PROVIDERS: ATTEND Family Medicine | DX: E03.9 Hypothyroidism, unspecified (principal); E78.2 Mixed hyperlipidemia; I10 Essential (primary) hypertension ==

== ENCOUNTER → 2020-03-03 | Outpatient (CLI) | payer MEDICARE, OTHER ==
--- NOTE | 2020-03-03 13:41 | CT ---
Study: CT abdomen and pelvis. Indication: LOWER ABD PAIN Technique: Venous and delayed phase CT imaging of the abdomen and pelvis obtained after intravenous administration of contrast. This exam was performed according to our departmental dose-optimization program, which includes automated exposure control, adjustment of the mA and/or kV according to patient size and/or use of iterative reconstruction technique. Comparison: None. Findings: Multiple tiny noncalcified pulmonary nodules at the lung bases with the largest in the left lower lobe measuring 6 mm. Heart size normal. Gallbladder distended with tiny stones. Liver, pancreas, spleen, kidneys, bladder, uterus, bilateral adnexa unremarkable. Bilateral adrenal gland nodules with enlargement left measuring up to 17 mm. Prior appendectomy suspected. At the central aspect of the small bowel mesentery is a calcified 7.1 cm transverse by 4.7 cm AP by 5.8 cm craniocaudal mass lesion. This is concerning for a carcinoid tumor but is nonspecific. Additional scattered reactive size mesenteric lymph nodes. No small bowel obstruction. Stomach unremarkable. Cholecystectomy clips. Small-volume free pelvic fluid. Pronounced atherosclerosis. Degenerative changes of the spine noted. Impression: Prominent calcified mass of the small bowel mesentery without small bowel obstruction. Carcinoid tumor is the favored diagnosis. However desmoid tumor, lymphoma, and sclerosing mesenteritis are considerations. General surgery consultation recommended. Tiny noncalcified pulmonary nodules at the lung bases measuring up to 6 mm. Follow-up CT chest in 6 months recommended Bilateral adrenal gland nodules as above. Probable adenomas. One year follow-up adrenal washout CT recommended. If stable at that time, no additional follow-up required. Distended gallbladder with gallstones. Small-volume free pelvic fluid. Additional findings. Multiple attempts made to reach the ordering physician regarding these findings, however no contact has been made. Additional attempts will be performed. Electronically signed by: Pascual Mallory MD 03/03/2020 1:40 PM REPRODUCTION TECHNICIAN
== END ==
LOC: CT 07:56
PROVIDERS: ATTEND Family Medicine
DX: K63.9 Disease of intestine, unspecified (principal); R91.8 Other nonspecific abnormal finding of lung field; R19.00 Intra-abdominal and pelvic swelling, mass and lump, unspecified site; K80.20 Calculus of gallbladder without cholecystitis without obstruction; E27.9 Disorder of adrenal gland, unspecified

== ENCOUNTER → 2020-03-11 | Outpatient (CLI) | payer MEDICARE, OTHER ==
--- NOTE | 2020-03-12 09:35 | RAD ---
EXAM DESCRIPTION: Chest,2 Views CLINICAL HISTORY: encounter for preprocedural respiratory examination COMPARISON: None TECHNIQUE: PA/lateral FINDINGS: The lungs are well expanded and clear. No infiltrates or effusions or masses are noted. The heart is normal in size and shape with no evidence of vascular congestion. The david and mediastinum demonstrate normal contours. The bony spine and chest wall is normal for age in appearance. IMPRESSION: Normal chest, two views Electronically signed by: Fan Esparza MD 03/12/2020 9:33 AM [facility]
== END ==
LOC: RAD 15:12
PROVIDERS: ATTEND Family Medicine
DX: Z01.811 Encounter for preprocedural respiratory examination (principal)

== ENCOUNTER 2020-03-13 09:15 | Day surgery (SDC) | payer MEDICARE, OTHER ==
[2020-03-13] MEDS ORDERED: DEXAMETHASONE INJ 10 MG/ML VIAL IV ONE (09:16)
[2020-03-13] MEDS ORDERED: GLYCOPYRROLATE 0.2 MG/ML VIAL IV ONE (09:16)
[2020-03-13] MEDS ORDERED: PROPOFOL 200 MG/20 ML VIAL IV ONE (09:16)
[2020-03-13] MEDS ORDERED: ePHEDrine SULF 50 MG/ML IV ONE (09:16)
[2020-03-13] MEDS ORDERED: MAGNESIUM SULFATE INJ 1 GM/2 ML VIAL IVPB ONE (09:16)
[2020-03-13] MEDS ORDERED: METOPROLOL TARTRATE INJ 5 MG/5 ML VIAL IV ONE (09:16)
[2020-03-13] MEDS ORDERED: LIDOCAINE 1% 10 ML VIAL INJ ONE (09:16)
[2020-03-13] MEDS ORDERED: FAMOTIDINE INJ 10 MG/ML VIAL IV ONE (12:41)
[2020-03-13] MEDS ORDERED: SUGAMMADEX SODIUM 200 MG/2 ML VIAL IV ONE ×2 (12:41→14:41)
[2020-03-13] MEDS ORDERED: ROCURONIUM BROMIDE 10 MG/ML VIAL ONE (12:41)
[2020-03-13] MEDS ORDERED: fentaNYL CITRATE INJ 50 MCG/ML 2 ML AMP ONE (12:41)
[2020-03-13] MEDS ORDERED: BUPIVACAINE 0.5% W/EPI 30 ML VIAL INJ ONE (12:59)
[2020-03-13] MEDS ORDERED: IODOFORM 1INCH 1 EA BTTL TOP ONE (13:25)
[2020-03-13] MEDS ORDERED: SODIUM CHLORIDE 0.9% 1000ML 1,000 ML ONE (13:37)
[2020-03-13] MEDS ORDERED: BUPIVACAINE 0.5% 30 ML VIAL INJ ONE ×2 (13:38)
[2020-03-13] MEDS ORDERED: HYDROmorphone HCL INJ 2 MG/ML VIAL ONE (13:55)
[2020-03-13 16:14] VITALS: BP 169/62; TEMP 96.9; O2SAT 98
--- NOTE | 2020-03-13 17:04 | OP ---
DATE OF PROCEDURE: 03/13/20 PREOPERATIVE DIAGNOSIS: 1. Mesenteric calcified mass. POSTOPERATIVE DIAGNOSIS: 1. Mesenteric calcified mass, favoring mesenteritis. PROCEDURE: 1. Laparoscopic exploration with mesenteric biopsy. SURGEON: Eric Liu MD ANESTHESIA: General, Aubrey Dior CRNA FINDINGS: The findings were consistent with the CT findings with a very densely firm and retracted mid-mesentery, primarily proximal to distal. The majority of the ileum in the mesentery was relatively free from the changes. Please see the operative report for description of the area that was affected. Biopsy of accessible mesenteric nodules finding no other evidence of intestinal mass, no peritoneal seeding, no liver changes, etc., were seen. COMPLICATIONS: None. ESTIMATED BLOOD LOSS: Minimal. SPECIMEN: Mesenteric biopsies x3. PLAN: Discharge. INDICATION: This is a woman with a history of abdominal pain, uncertain etiology. She had a CT scan that showed calcified mesentery. There was suspicion for metastatic carcinoid syndrome or mesenteritis and a couple of others. On evaluation of the scan, it seemed consistent with mesenteritis, but we recommended a biopsy. The patient has some symptoms of abdominal pain, cramping postprandial as well as some diarrhea. She denies any flushing, no fevers, no chills, no headaches, visual changes and uncertain of the duration, but it has been a good amount of time. We discussed the different options. She also has had some abdominal pain and has known gallstones. Although the pain is not classic for symptomatic cholelithiasis, it could possibly be. We had discussed it, but I have no intention of removing the gallbladder today with this procedure. I explained I would look at the gallbladder visually and see. PROCEDURE: The patient was brought to the Operating Suite in supine position. General anesthesia was induced. She was prepped and draped in sterile fashion. 0.5% Marcaine with epinephrine was used all incision sites. While maintaining upward traction, a kimmie was made into the base of the umbilicus. A Veress needle was introduced. There was free flow of the fluid into the peritoneal cavity, which was insufflated to an appropriate level of CO2 gas. A 5 mm trocar was placed followed by the camera. There was no evidence of bleeding or bowel injury. We scanned the abdomen. There is no obvious abnormality seen on the initial exam. Two mid lateral abdominal 5 mm ports were placed as well as a 10 mm port in the upper right abdomen. At this point, we positioned the patient. I lifted the omentum. The liver surfaces appeared normal initially as did the gallbladder. She was NPO. It was moderately full, but a chanel's egg blue. There was no evidence of scarring or obvious chronic inflammation, although that is not definitive. The omentum was placed over the liver so we could see the small bowel. We could see the area affected. As is typical of mesenteritis, it is on top of a very dense, retracted mesentery. The bowel loops are very close to each other and non-mobile. They were very vascular at the mesenteric edges with visible vessels, also visible lymphatics in the bowel wall. The distal small bowel was relatively free of disease in the very proximal that we could see. It was difficult to move the mid small bowel mesentery due to the relative heaviness and fixation of the mesentery and I did not want to damage anything. I ran the terminal ileum up and ran bowel the bowel as best we could, getting I would say at least 2/3 view of all the small bowel and no obvious masses, although, again, the proximal area involved was immobile and dense on the mesentery. In elevating and mobilizing the mesentery, pushing it essentially off to the right and looking at the root, the surfaces were relatively clean of the inflammation. The inflammation was deep. In most areas, it appeared very hazardous to try to get a significant biopsy and not wanting to risk damaging vessels which would not easily be able to be repaired given the denseness of the tissue in the area. We did happen to come across three areas that were nodular near the dense mesentery that we could remove safely. One of them did have some bleeding, which we controlled with the 5 mm clip clinical registered nurse and on palpation, there were two of them that were little dense nodules. I am not convinced this is carcinoid. I still favor mesenteritis having seen it a number of times, but it could be carcinoid. Given what we are seeing, access to the mesentery for a safe biopsy, at least laparoscopically, is ill advised. We did get biopsies of affected tissue. Hopefully, this will give us a diagnosis. If this does not, the patient will need to likely proceed to an open biopsy, either deep needle biopsy with direct control of any possible bleeding or possible direct biopsy of the mesentery if it is more accessible open. We do have tissue and hopefully it will give us a diagnosis. At that time, the larger port was closed with a 0 Vicryl using the suture passer. It was airtight and non-bleeding. The remaining trocars were removed. After desufflation, there was no evidence of bleeding from the trocar sites. The wounds were irrigated and closed with Monocryl. She was awakened and taken to Recovery to be discharged. #[id number] cc: Torrie Vega MD [facility]
== END 2020-03-13 16:12 | disposition home or self-care (01) ==
LOC: AMB 09:15
PROVIDERS: ATTEND Surgery
DX: K65.4 Sclerosing mesenteritis (principal); F32.9 Major depressive disorder, single episode, unspecified; E78.00 Pure hypercholesterolemia, unspecified; I10 Essential (primary) hypertension; E03.9 Hypothyroidism, unspecified; Z96.653 Presence of artificial knee joint, bilateral; Z79.82 Long term (current) use of aspirin; Z79.899 Other long term (current) drug therapy
CPT/HCPCS: 00840; 49321; 88305; 88342; J1100; J1170; J3010; J3475; J3490; J7030; J7120

== ENCOUNTER 2020-04-14 09:02 | Emergency (ER) | payer MEDICARE, OTHER ==
--- NOTE | 2020-04-14 09:19 | ED.PDOC ---
History of Present Illness - General Time Seen by Provider: 04/14/20 09:15 Source: patient Exam Limitations: no limitations - History of Present Illness Initial Comments: PATIENT REPORTS SHE FELL DIRECTLY ONTO KNEE, STRIKING RIGHT KNEE AGAINST THE FLOOR, UNABLE TO STAND OR BEAR WEIGHT NOW, UNABLE TO STRAIGHTEN KNEE AGAINST GRAVITY. STATES S/P BILAT TOTAL KNEE REPLACEMENT. Improving Factors: nothing Worsening Factors: nothing Allergies/Adverse Reactions: Allergies NO KNOWN ALLERGY Allergy (Verified 02/07/18 08:43) Home Medications: Ambulatory Orders Metoprolol Succinate [Metoprolol Succinate ER] 25 mg PO DAILY@0700 01/12/15 Simvastatin 40 mg PO BEDTIME 01/12/15 Albuterol Sulfate [Proair Hfa] 2 puff INH Q6H PRN 08/08/16 Aspirin 325 mg PO QD 08/08/16 Fluoxetine HCl [Prozac] 40 mg PO DAILY@0700 08/08/16 Acetaminophen [Tylenol] 325 mg PO BID 02/06/18 Levothyroxine Sodium [Synthroid] 125 mcg PO DAILY 02/06/18 Lisinopril & Hydrochlorothiazi [Lisinopril/Hctz 20-25 mg] 1 tab PO DAILY 02/06/18 Fluticasone Furoate-Vilanterol [Breo Ellipta] 1 inh IN DAILY 03/12/20 Furosemide [Lasix] 20 mg PO DAILY PRN 03/12/20 Review of Systems - Review of Systems Constitutional: States: no symptoms reported Respiratory: States: no symptoms reported Cardiology: States: no symptoms reported Gastrointestinal/Abdominal: States: no symptoms reported Genitourinary: States: no symptoms reported Musculoskeletal: States: no symptoms reported Skin: States: no symptoms reported Neurological: States: no symptoms reported Past Medical History (General) - Patient Medical History Hx Seizures: No Hx Stroke: No Hx Asthma: No Hx of COPD: No Hx Cardiac Disorders: Yes - Hypercholesterolemia Hx Congestive Heart Failure: No Hx Pacemaker: No Hx Hypertension: Yes Hx Diabetes: No Hx MRSA: No - Social History Hx Alcohol Use: No Hx Substance Use: No Hx Physical Abuse: No Hx Emotional Abuse: No Family Medical History - Family History Mother Living Status: Cause of : Diabetes complication Hx Family Asthma: No Hx Family Congestive Heart Failure: No Hx Family Hypertension: No Hx Family Stroke: No Hx Cardiac Disease: No Hx Family Diabetes: Yes Hx Family Cancer: No Physical Exam - Physical Exam General Appearance: Alert, Comfortable, Obese Neck: non-tender, full range of motion, supple, normal inspection Cardiovascular/Respiratory: regular rate, rhythm, normal peripheral pulses, normal breath sounds, no respiratory distress Gastrointestinal/Abdominal: non-tender, no organomegaly Leg: normal inspection, limited ROM - LEFT KNEE, pain, swelling Knee: bone tenderness, pain Ankle: normal inspection, non-tender, no evidence of injury Foot: normal inspection, non-tender, no evidence of injury Progress - Progress Progress: 04/14/20 11:[address] NERI AT 10:15 AND AGAIN AT 11:00, HE IS REVIEWING CT SCAN NOW AND WILL COME SEE PATIENT IN THE ED PRIOR TO ADMIT / ER DISPOSITION 04/14/20 12:39 ACCEPTED BY [facility], TO ORTHO SERVICE, Departure - Departure Clinical Impression: Femur fracture, left Qualifiers: Encounter type: initial encounter Femur location: shaft Fracture type: closed Fracture morphology: comminuted Fracture alignment: displaced Qualified Code(s): S72.352A - Displaced comminuted fracture of shaft of left femur, initial encounter for closed fracture Disposition: Discharge to Home or Self Care Referrals: MICHELLE CAMERON MD [Primary Care Provider] - 1-2 Weeks Home Medications: Ambulatory Orders Metoprolol Succinate [Metoprolol Succinate ER] 25 mg PO DAILY@0700 01/12/15 Simvastatin 40 mg PO BEDTIME 01/12/15 Albuterol Sulfate [Proair Hfa] 2 puff INH Q6H PRN 08/08/16 Aspirin 325 mg PO QD 08/08/16 Fluoxetine HCl [Prozac] 40 mg PO DAILY@0700 08/08/16 Acetaminophen [Tylenol] 325 mg PO BID 02/06/18 Levothyroxine Sodium [Synthroid] 125 mcg PO DAILY 02/06/18 Lisinopril & Hydrochlorothiazi [Lisinopril/Hctz 20-25 mg] 1 tab PO DAILY 02/06/18 Fluticasone Furoate-Vilanterol [Breo Ellipta] 1 inh IN DAILY 03/12/20 Furosemide [Lasix] 20 mg PO DAILY PRN 03/12/20
--- NOTE | 2020-04-14 09:38 | RAD ---
EXAM DESCRIPTION: Knee,Left Complete CLINICAL HISTORY: FALL ON KNEE, BLUNT TRAUMA COMPARISON: August 09, 2016 IMPRESSION: 2 views of the left knee show complete, mildly comminuted irregular fracture of the distal diaphysis of the femur with greater than one shaft width posterior displacement of the distal fracture fragment which shows at least 10 to 12 cm proximal displacement of the distal fracture fragment. Question injury or disruption to the quadriceps tendon. The distal fracture fragments appear to extend into the femoral condyles. Total knee arthroplasty changes are seen with cement fixation of the tibial femoral components. Moderate vascular calcifications are seen. Electronically signed by: Armin Miramontes MD 04/14/2020 9:36 AM [facility]
--- NOTE | 2020-04-14 10:45 | CT ---
EXAM DESCRIPTION: Lower Extremity CLINICAL HISTORY: 75 years Female, complex fracture. TECHNIQUE: This exam was performed according to our departmental dose-optimization program, which includes automated exposure control, adjustment of the mA and/or kV according to patient size and/or use of iterative reconstruction technique. COMPARISON: Same day radiographs FINDINGS: Redemonstrated comminuted distal left femur fracture. There is 4.1 cm posterior displacement of the distal fracture fragment and 6 cm of overriding. There are fracture lucencies extending into both medial and lateral femoral condyles. [place] artifact from the left knee arthroplasty limits evaluation. There is soft tissue swelling present about the left knee. I do not see a fracture in the tibia or fibula. IMPRESSION: Redemonstrated markedly comminuted fracture of the distal left femur. Electronically signed by: Mathew Ponce MD 04/14/2020 10:44 AM [facility]
--- NOTE | 2020-04-14 10:45 | RAD ---
EXAM DESCRIPTION: Chest,1 View CLINICAL HISTORY: 75 years Female, PRE-O[P COMPARISON: March 11, 2020 TECHNIQUE: X-ray 1 view chest AP portable FINDINGS: Lungs are clear. No consolidation. Heart normal size. IMPRESSION: Normal. Electronically signed by: Homero Tim MD 04/14/2020 10:[address] [facility]
[2020-04-14] MEDS ORDERED: HYDROmorphone HCL INJ 2 MG/ML VIAL IV ONE (11:01)
[2020-04-14] MEDS ORDERED: ONDANSETRON INJ 4 MG/2 ML VIAL IV ONE (11:02)
[2020-04-14] MEDS ORDERED: HYDROmorphone HCL INJ 2 MG/ML VIAL ONE (11:03)
[2020-04-14 13:08] VITALS: TEMP 98.2
[2020-04-14 13:41] VITALS: BP 106/64; O2SAT 96
== END 2020-04-14 13:30 | disposition home or self-care (01) ==
LOC: ER 09:02
DX: S72.402A Unspecified fracture of lower end of left femur, initial encounter for closed fracture (principal); Z96.653 Presence of artificial knee joint, bilateral; I10 Essential (primary) hypertension; E78.00 Pure hypercholesterolemia, unspecified; Z79.899 Other long term (current) drug therapy; W01.0XXA Fall on same level from slipping, tripping and stumbling without subsequent striking against object, initial encounter; Y93.01 Activity, walking, marching and hiking; Y92.008 Other place in unspecified non-institutional (private) residence as the place of occurrence of the external cause
CPT/HCPCS: 36415; 71045; 73562; 73700; 80053; 85025; 86850; 86900; 86901; 87635; 93005; J1170; J2405